=== PATIENT | female | born 1940 | race Caucasian/White ===

== ENCOUNTER 2017-07-21 11:12 | Emergency (ER) | payer MEDICARE, BC ==
[~2017-07-21] VITALS: Ht 165.1 cm; Wt 59.0 kg
[2017-07-21 12:13] LABS: BASOPHILS % (AUTO) 0.4 % (0-1); EOSINOPHILS # (AUTO) 0.2 X10'3 (0-0.9); EOSINOPHILS % (AUTO) 2.6 % (0-6); HEMATOCRIT 37.2 % (35.0-45.0); HEMOGLOBIN 12.9 g/dl (12.0-16.0); LYMPHOCYTES # (AUTO) 2.1 X10'3 (1.1-4.8); LYMPHOCYTES % (AUTO) 27.5 % (21-51); MEAN CORPUSCULAR HEMOGLOBIN 32.8 PG (27.0-31.0); MEAN CORPUSCULAR HGB CONC 34.7 % (33.0-36.5); MEAN CORPUSCULAR VOLUME 94.7 FL (78-98); MEAN PLATELET VOLUME 6.6 FL (7.4-10.4); MONOCYTES # (AUTO) 0.5 X10'3 (0-0.9); NEUTROPHILS # (AUTO) 4.8 X10'3 (1.8-7.7); NEUTROPHILS % (AUTO) 62.5 % (42-75); PLATELET COUNT 376 X10'3 (140-440); RED BLOOD COUNT 3.93 X10'6 (4.20-5.60); RED CELL DISTRIBUTION WIDTH 13.1 % (11.5-14.5); WHITE BLOOD COUNT 7.6 X10'3 (4.5-11.0)
[2017-07-21 12:26] LABS: ALANINE AMINOTRANSFERASE 31 U/L (12-78); ALBUMIN 3.5 G/DL (3.4-5.0); ALKALINE PHOSPHATASE 107 IU/L (46-116); ANION GAP 11 (8-16); ASPARTATE AMINO TRANSFERASE 20 U/L (10-37); BILIRUBIN,TOTAL 0.3 MG/DL (0.1-1.0); BLOOD UREA NITROGEN 15 MG/DL (7-18); BUN/CREATININE RATIO 17.2 (6.6-38.0); CALCIUM 9.1 MG/DL (8.5-10.1); CHLORIDE 103 MMOL/L (99-107); CREATININE 0.87 MG/DL (0.40-0.90); GLUCOSE 114 MG/DL (70-104); POTASSIUM 3.6 MMOL/L (3.5-5.1); SODIUM 141 MMOL/L (135-145); TOTAL CARBON DIOXIDE 27.2 MMOL/L (24-32); eGFR 63 ML/MIN
[2017-07-21 12:43] LABS: D-DIMER 0.37 MG/L FEU (0-0.50)
[2017-07-21] MEDS ORDERED: ipratropium/albuterol 3ml nebule NEB ONE (13:30)
[2017-07-21] MEDS ORDERED: ALBU8HFA PO (14:07)
[2017-07-21 14:14] VITALS: BP 141/94
== END 2017-07-21 14:15 | disposition home or self-care (01) ==
LOC: ER 11:12
DX: J20.9 Acute bronchitis, unspecified (principal)
CPT/HCPCS: 36415; 71046; 80053; 83605; 83880; 84484; 85025; 85379; 87040; 93005; 94640; 94760; 99285

== ENCOUNTER 2019-07-10 17:21 | Emergency (ER) | payer MEDICARE, BC ==
[~2019-07-10] VITALS: Ht 162.6 cm; Wt 61.4 kg
[2019-07-10 17:24] VITALS: BP 171/73
[2019-07-10] MEDS ORDERED: DOXY100C43 PO (17:38)
[2019-07-10] MEDS ORDERED: gentamicin 0.3% ophthalmic drops 5ML RIGHTEYE ONE (17:40)
== END 2019-07-10 17:52 | disposition home or self-care (01) ==
LOC: ER 17:21
DX: H00.031 Abscess of right upper eyelid (principal); H00.012 Hordeolum externum right lower eyelid; H10.89 Other conjunctivitis; Z88.8 Allergy status to other drugs, medicaments and biological substances; Z79.899 Other long term (current) drug therapy
CPT/HCPCS: 99283

== ENCOUNTER 2024-04-28 10:33 | Outpatient (CLI) | payer MEDICARE, BC | END 2024-04-28 23:59 | disposition home or self-care (01) | LOC: MRI02 10:33 | PROVIDERS: ATTEND Family Medicine Sports Medicine | DX: M47.27 Other spondylosis with radiculopathy, lumbosacral region (principal); M41.87 Other forms of scoliosis, lumbosacral region; M48.07 Spinal stenosis, lumbosacral region | CPT/HCPCS: 72148 ==